=== PATIENT | male | born 1990 | race Caucasian/White ===

== ENCOUNTER 2023-10-07 22:46 | Emergency (ER) | payer OTHER ==
[2023-10-07 22:51] VITALS: RESP 18; TEMP 97.7; BMI 34.0
[2023-10-07] MEDS ORDERED: SODIUM CHLORIDE 1,000 ML IV STA (22:53)
[2023-10-07] MEDS ORDERED: FAMOTIDINE 20 MG/50 ML IVPB 20 MG/50 ML MG IVPB ONE ×2 (22:53→23:27)
[2023-10-07] MEDS ORDERED: DEXAMETHASONE SOD PHOSPHATE 10 MG/1 ML VIAL IVPUSH ONE (22:53)
[2023-10-07] MEDS ORDERED: DEXAMETHASONE SOD PHOSPHATE 10 MG/1 ML VIAL ONE (23:27)
[2023-10-08 00:03] LABS: ALBUMIN 4.4 g/dl (3.4-5.0); BLOOD UREA NITROGEN 27.6 mg/dL (7-18); CALCIUM 9.3 mg/dL (8.5-10.1)
[2023-10-08 00:07] LABS: CREATININE 1.2 mg/dL (0.55-1.3)
[2023-10-08 00:08] LABS: BILIRUBIN,TOTAL 0.8 mg/dL (0.2-1); TOT PROT 7.6 g/dl (6.4-8.2)
[2023-10-08 01:06] LABS: BASO % 0.3 % (0-2.0); EOS % 1.2 % (0-4.5); HEMATOCRIT 48.7 % (35.4-49); HEMOGLOBIN 16.9 GM/dL (11.7-16.9); MCH 30.5 pg (25.7-33.7); MCHC 34.6 g/dl (32.0-35.9); MEAN CELL VOLUME 88.1 fl (80-96); MEAN PLT VOLUME 8.7 fl (7.5-11.1); NEUT % 42.5 % (42.8-82.8); PLATELET COUNT 259 10^3/uL (134-434); RBC 5.53 M/mm3 (4.00-5.60); RDW 12.9 % (11.9-15.9); WHITE BLOOD COUNT 9.3 K/mm3 (4.0-10.0)
[2023-10-08 01:22] VITALS: BP 139/85; PULSE 78
[2023-10-08] MEDS: DEXAMETHASONE 4 MG TABLET (FP) PO ONE ×2 (01:59→02:02)
[2023-10-08] MEDS ORDERED: DEXAMETHASONE 4 MG TABLET (FP) ONE (02:01)
== END 2023-10-08 02:06 | disposition home or self-care (01) ==
LOC: JER 22:46
PROC: 3E033GC Introduction of Other Therapeutic Substance into Peripheral Vein, Percutaneous Approach (ICD-10-PCS; principal; 2023-10-07)
PROC: 3E033GC Introduction of Other Therapeutic Substance into Peripheral Vein, Percutaneous Approach (ICD-10-PCS; 2023-10-07)
DX: L50.9 Urticaria, unspecified (principal); T63.441A Toxic effect of venom of bees, accidental (unintentional), initial encounter; R42 Dizziness and giddiness; L29.9 Pruritus, unspecified
CPT/HCPCS: 36415; 80053; 85025; 99284-25; J1100